=== PATIENT | male | born 1960 | race Caucasian/White ===

== ENCOUNTER 2017-04-12 09:33 | Outpatient (CLI) | payer OTHER | END 2017-04-12 09:34 | disposition short-term general hospital (02) | LOC: EMS 09:33 | PROVIDERS: ATTEND Surgery | DX: R12 Heartburn (principal); R07.89 Other chest pain | CPT/HCPCS: A0425; A0427 ==

== ENCOUNTER 2018-02-16 12:45 | Emergency (ER) | payer OTHER ==
[2018-02-16] MEDS ORDERED: PROPARACAINE 0.5% OPHTH DROPS 15 ML RIGHTEYE STA (13:04)
--- NOTE | 2018-02-16 13:41 | ED Physician Documentation ---
History of Present Illness - Stated complaint Stated Complaint: R EYE PX - Chief complaint Chief Complaint: Heent - Additonal information Additional information: hx from pt 57 male new to contacts and travelled for family emergency realizes he had two maybe three contacts in right eye for at least overnight and now has red inflamed r eye Review of Systems Eyes: reports: Irritation PD PAST MEDICAL HISTORY - Past Medical History Past Medical History: Yes Psych: Post traumatic stress disorder - Past Surgical History Past Surgical History: Yes - Present Medications Home Medications: Ambulatory Orders Medication Instructions Recorded Confirmed Diazepam [Valium] 10 mg PO DAILY PRN 07/25/14 11/04/14 Hydrocodone/Acetaminophen 1 - 2 each PO Q6H PRN #20 tablet 11/04/14 [Hydrocodon-Acetaminophen 5-325] Erythromycin Base [Erythromycin] 1 applic OP Q4H #1 tub 02/16/18 - Allergies Allergies/Adverse Reactions: Allergies Allergy/AdvReac Type Severity Reaction Status Date / Time No Known Drug Allergies Allergy Verified 11/04/14 13:07 - Social History Does the pt smoke?: Yes Smoking Status: Current every day smoker Does the pt drink ETOH?: Yes Does the pt have substance abuse?: No - Immunizations Immunizations are current?: Yes - POLST Patient has POLST: No PD ED PE NORMAL - Vitals Vital signs reviewed: Yes - HEENT HEENT: PERRL, EOMI, Other (injected candelario, dc, gobes soft, , no ulcer or abrasion or deindrites, thin curvilinear FB in R eye, thought it was edge of a contact lens but seems to be an eyelash which was removed) Results - Vitals Vitals: Vital Signs - 24 hr 02/16/18 12:58 Temperature 36.0 C L Heart Rate 65 Respiratory 18 Rate Blood Pressure 135/81 H O2 Saturation 99 Oxygen O2 Source Room air PD MEDICAL DECISION MAKING - ED course ED course: no corneal ulcer, no contact found, eyelash removed, eyes injected with dc and pt manipulation tryin to use his contacts, will rx emycin - Sepsis Event Vital Signs: Vital Signs - 24 hr 02/16/18 12:58 Temperature 36.0 C L Heart Rate 65 Respiratory 18 Rate Blood Pressure 135/81 H O2 Saturation 99 Oxygen O2 Source Room air Departure - Departure Disposition: 01 Home, Self Care Clinical Impression: Foreign body of right eye Qualifiers: Encounter type: initial encounter Qualified Code(s): T15.91XA - Foreign body on external eye, part unspecified, right eye, initial encounter Conjunctivitis Qualifiers: Conjunctivitis type: acute Acute conjunctivitis type: unspecified Laterality: bilateral Qualified Code(s): H10.33 - Unspecified acute conjunctivitis, bilateral Condition: Good Instructions: ED Conjunctivitis Nonspecific Prescriptions: Erythromycin Base [Erythromycin] 1 applic OP Q4H #1 tub Comments: Please follow up with your eye doctor next week for a recheck Return if worse
[2018-02-16] MEDS ORDERED: ERYTHROMYCIN OPHTH OINT 1 GM TUBE RIGHTEYE STA (14:13)
[2018-02-16 14:26] VITALS: BP 128/93
== END 2018-02-16 14:26 | disposition home or self-care (01) ==
LOC: ED 12:45
DX: T15.91XA Foreign body on external eye, part unspecified, right eye, initial encounter (principal); X58.XXXA Exposure to other specified factors, initial encounter; H10.33 Unspecified acute conjunctivitis, bilateral; F17.200 Nicotine dependence, unspecified, uncomplicated
CPT/HCPCS: 99283; J3490

== ENCOUNTER 2023-02-15 08:22 | Day surgery (SDC) | payer OTHER ==
[~2023-02-15 08:22] MED LIST: CYCLOPENTOLATE 1% OPHTH DROPS 2 ML ONE; KETOROLAC 0.45% OPHTH DROPS ONE; PHENYLEPHRINE 2.5% OPHTH 2 ML DROPS ONE; PROPARACAINE 0.5% OPHTH DROPS 15 ML ONE
[2023-02-15] MEDS ORDERED: LACTATED RINGERS 1,000 ML IV ONE ×2 (09:08→10:03)
[2023-02-15] MEDS ORDERED: BRIMONIDINE 0.2% OPHTH DROPS 5 ML ONE (09:23)
[2023-02-15] MEDS ORDERED: TRIAMCIN/MOXIFLOX OPHTHALMIC 0.6 ML VIAL IO ONE ×2 (09:23→09:32)
[2023-02-15] MEDS ORDERED: TIMOLOL 0.5% OPHTH DROPS ONE (09:23)
[2023-02-15] MEDS ORDERED: EPINEPHrine 1 MG/ML AMP ONE (09:23)
[2023-02-15] MEDS ORDERED: BSS/LIDOCAINE/EPINEPHRINE 1 ML VIAL ONE (09:24)
--- NOTE | 2023-02-15 09:30 | ANESTHESIA ---
Pre-Anesthesia VS, & Labs - Diagnosis right eye cataract - Procedure right eye cataract extraction with IOL implant Vital Signs: Temp Pulse Resp BP Pulse Ox O2 Flow Rate 36.6 C 91 17 131/85 H 95 02/15/23 08:45 02/15/23 08:45 02/15/23 08:45 02/15/23 08:45 02/15/23 08:45 Height: 5 ft 7 in Weight (kg): 65.9 kg Body Mass Index: 22.7 BMI Classification: Normal - NPO >8 hours Home Medications and Allergies Home Medications: Ambulatory Orders Mirtazapine 15 mg PO DAILY 02/14/23 Diazepam [Valium] 5 mg PO BID 07/25/14 Mirtazapine 15 mg PO DAILY 02/14/23 Allergies/Adverse Reactions: Allergies Allergy/AdvReac Type Severity Reaction Status Date / Time No Known Drug Allergies Allergy Verified 02/14/23 14:08 Anes History & Medical History - Anesthetic History Anesthesia Complications: reports: No previous complications - Medical History Cardiovascular: reports: None Pulmonary: reports: COPD Gastrointestinal: reports: None Urinary: reports: None Neuro: reports: None Musculoskeletal: reports: Chronic back pain Endocrine/Autoimmune: reports: None Skin: reports: Rosacea Smoking Status: Current every day smoker (1 pack per day for 20 years) Psychosocial: reports: Alcohol (4 drinks per day) History of Cancer?: No - Surgical History General: reports: Colonoscopy Eyes Ears Nose Throat (EENT): reports: Other (septoplasty) Orthopedic: reports: Other (ganglion cystectomy right wrist) Exam General: Alert, Oriented x3, Cooperative, No acute distress Dental: WNL Mouth Openin Fingerbreadth Neck Mobility: Reduced Mallampati classification: III Thyromental Distance: less than 4 cm Mental/Cognitive Status: Alert/Oriented X3, Normal for patient Plan Anesthesia Type: MAC Consent for Procedure(s) Verified and Reviewed: Yes Code Status: Attempt Resuscitation ASA classification: 2-Mild systemic disease Is this case an emergency?: No
[2023-02-15] MEDS ORDERED: BRIMONIDINE 0.2% OPHTH DROPS 5 ML OPTH ONE (09:31)
[2023-02-15] MEDS ORDERED: TIMOLOL 0.5% OPHTH DROPS OPTH ONE (09:31)
[2023-02-15] MEDS ORDERED: EPINEPHrine 1 MG/ML AMP IR ONE (09:31)
[2023-02-15] MEDS ORDERED: VANCOMYCIN OPHTH (TOPICAL) 10 MG/ML SYRINGE TOP ONE (09:32)
[2023-02-15] MEDS ORDERED: PROPARACAINE 0.5% OPHTH DROPS 15 ML EACHEYE ONE (09:32)
[2023-02-15] MEDS ORDERED: BSS/LIDOCAINE/EPINEPHRINE 1 ML SYRINGE IO ONE (09:32)
[2023-02-15] MEDS ORDERED: MIDAZOLAM 2 MG/2 ML VIAL ONE ×2 (09:33→09:56)
[2023-02-15] MEDS ORDERED: fentaNYL 100 MCG/2 ML VIAL ONE (09:53)
[2023-02-15 10:11] VITALS: O2SAT 97
--- NOTE | 2023-02-15 10:11 | OPERATIVE REPORT ---
Operative Report - Other Other Information/Narrative: Date of Surgery: 02/15/23 Preop Dx: Visually significant cataract right eye. This was the first cataract surgery. Postop Dx: Same Procedure: Phacoemulsification with posterior chamber intraocular lens implant right eye Surgeon: Dr. Ye Neville Anesthesia: Monitored anesthesia care Complications: None Operative Indications: This is a 62-year-old M with progressive vision loss in the right eye due to 3+ nuclear sclerotic, 2+ posterior subcapsular, and vacuolar cataract. Best corrected visual acuity was 20/40 with glare to hand motion vision in the right eye. Indications for surgery were: - Overall decrease in vision - Difficulty seeing words on a computer screen - Difficulty reading - Difficulty seeing words, closed captions, or game scores on TV - Difficulty seeing street signs - Difficulty driving in low light or at night - Difficulty driving at night because of headlights from other vehicles The patient was consented at length concerning the risks and benefits of cataract surgery after which the patient expressed a desire to proceed with surgery. Operative Procedure: The patient was taken into OR#3 and placed under monitored anesthesia care. A surgical time-out was conducted confirming correct patient, correct procedure, and correct surgical site. The patient was given topical anesthesia and then prepped and draped in the usual sterile fashion. The eye was entered at the 6 and 3 oclock positions. Intracameral Shugarcaine was injected into the anterior chamber followed by a dispersive viscoelastic. A continuous-tear curvilinear capsulorhexis was performed. The nucleus was hydrodissected and phacoemulsified. The cortex was evacuated using automated infusion and aspiration. A cohesive viscoelastic was injected into the capsular bag and a 23.0 diopter intraocular lens was inserted into the bag. Infusion and aspiration were used to evacuate the viscoelastic materials from the eye. The wounds were hydrated and the eye inflated to physiologic pressure using balanced salt solution. Approximately 0.25ml of a mixture of triamcinolone and moxifloxacin was injected trans-sclerally into the vitreous in the inferotemporal quadrant using a 30 gauge cannula. An additional 0.25ml of a mixture of triamcinolone and moxifloxacin was injected subconjunctivally in the superior quadrant for infection and inflammation prophylaxis. Wound integrity was checked with Weck-Radha sponges. The patient was taken from the operating room in good condition and given post-op instructions.
[2023-02-15 10:21] VITALS: BP 132/84
--- NOTE | 2023-02-15 10:52 | ANESTHESIA POST OP EVALUATION ---
Anesthesia Post Eval - Post Anesthesia Eval Vitals: Last Vital Signs Temp 36.4 C L 02/15/23 10:03 Pulse 87 02/15/23 10:16 Resp 15 02/15/23 10:16 BP 132/84 H 02/15/23 10:16 Pulse Ox 97 02/15/23 10:16 O2 Flow Rate CV Function Including HR & BP: Stable Pain Control: Satisfactory Nausea & Vomiting: Negative Mental Status: Baseline Respiratory Status: Airway Patent Hydration Status: Satisfactory Anesthesia Complications: None
== END 2023-02-15 08:23 | disposition home or self-care (01) ==
LOC: SDS 08:22
PROVIDERS: ATTEND Ophthalmology
DX: H25.811 Combined forms of age-related cataract, right eye (principal); J44.9 Chronic obstructive pulmonary disease, unspecified; F17.200 Nicotine dependence, unspecified, uncomplicated
CPT/HCPCS: 66984; A9270; J3490; J7120

== ENCOUNTER 2023-05-31 10:31 | Outpatient (CLI) | payer OTHER ==
[2023-05-31] MEDS ORDERED: ALBUTEROL 1 PUFF INH STA (12:13)
== END 2023-05-31 10:32 | disposition home or self-care (01) ==
LOC: RT 10:31
PROVIDERS: ATTEND Nurse Practitioner Family
DX: R05.3 Chronic cough (principal); R06.2 Wheezing; F17.200 Nicotine dependence, unspecified, uncomplicated
CPT/HCPCS: 94060; 94727; 94729

== ENCOUNTER 2023-07-15 12:42 | Emergency (ER) | payer OTHER ==
--- NOTE | 2023-07-15 14:05 | ED Physician Documentation ---
PD HPI FOCAL NEURO - Stated complaint Stated Complaint: NECK/CHEEK NUMBNESS - Chief complaint Chief Complaint: General - History obtained from History obtained from: Patient - History of Present Illness Timing - onset: How many weeks ago (2) Timing - duration: Weeks (2) Timing - details: Gradual onset, Still present, Intermittant, Waxing and waning (was initially intermittent feeling lasting few minutes or so, then has gotten more grequently, with an electric feeling on side of face, pront of ear and toward periorbital area on right. No rash nor sores. Has had symptoms more consistently though still undulating the past few days.) Severity of deficit: Moderate Weakness: No: Face Numbness: Face. No: Arm, Leg Associated symptoms: Headache (some pain, presure feeling right periauricular area and behind the ear.), Neck pain (right back of neck to side of neck.). No: Nausea / vomiting Baseline status: positive: A&OX3, ambulatory, indep Similar symptoms before: Has not had sx before Review of Systems Constitutional: denies: Fever, Chills, Myalgias Eyes: denies: Decreased vision, Photophobia Ears: reports: Tinnitus/ringing. denies: Loss of hearing, Ear pain, Drainage/discharge Nose: reports: Congestion. denies: Rhinorrhea / runny nose Neurologic: reports: Numbness (just right side of face on upper/mid aspect). denies: Focal weakness PD PAST MEDICAL HISTORY - Past Medical History Past Medical History: Yes Cardiovascular: None Respiratory: COPD Neuro: None Endocrine/Autoimmune: None GI: None : None HEENT: Other Psych: Post traumatic stress disorder Musculoskeletal: Chronic back pain Derm: Rosacea - Past Surgical History Past Surgical History: Yes General: Colonoscopy Ortho: Other HEENT: Other - Present Medications Home Medications: Ambulatory Orders Medication Instructions Recorded Confirmed Diazepam [Valium] 5 mg PO BID 07/25/14 02/14/23 Mirtazapine 15 mg PO DAILY 02/14/23 02/14/23 Valacyclovir HCl [Valtrex] 500 mg PO TID #15 tablet 07/15/23 carBAMazepine [TEGretol] 100 mg PO BID #20 tablet 07/15/23 dexAMETHasone [Decadron] 4 mg PO DAILY #5 tablet 07/15/23 - Allergies Allergies/Adverse Reactions: Allergies Allergy/AdvReac Type Severity Reaction Status Date / Time No Known Drug Allergies Allergy Verified 07/15/23 12:47 - Social History Does the pt smoke?: Yes Smoking Status: Current every day smoker Does the pt drink ETOH?: Yes Does the pt have substance abuse?: No - Immunizations Immunizations are current?: Yes - POLST Patient has POLST: No PD ED PE NORMAL - Vitals Vital signs reviewed: Yes - General General: Alert and oriented X 3, No acute distress, Well developed/nourished - HEENT HEENT: PERRL, EOMI, Ears normal, Pharynx benign, Dentition benign - Neck Neck: Supple, no meningeal sign, No adenopathy - Cardiac Cardiac: RRR, No murmur - Respiratory Respiratory: No respiratory distress, Clear bilaterally - Derm Derm: Normal color, Warm and dry, No rash - Neuro Neuro: Alert and oriented X 3, 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 ) Results - Vitals Vitals: Vital Signs - 24 hr 07/15/23 07/15/23 07/15/23 12:47 14:10 16:00 Temperature 36.8 C Heart Rate 96 79 66 Respiratory 18 18 18 Rate Blood Pressure 160/97 H 125/83 H 122/82 H O2 Saturation 99 96 95 07/15/23 07/15/23 18:16 18:58 Temperature 36.5 C Heart Rate 64 78 Respiratory 18 18 Rate Blood Pressure 146/84 H 147/90 H O2 Saturation 96 100 Oxygen O2 Source Room air - Labs Labs: Laboratory Tests 07/15/23 15:12 Sodium 134 L Potassium 4.2 Chloride 104 Carbon Dioxide 24 Anion Gap 6.0 BUN 12 Creatinine 0.8 Estimated GFR (MDRD) 97 Glucose 113 H Calcium 9.4 Magnesium 1.6 L Total Bilirubin 0.9 AST 47 H ALT 47 Alkaline Phosphatase 67 C-Reactive Protein < 0.5 Total Protein 6.8 Albumin 4.3 Globulin 2.5 Albumin/Globulin Ratio 1.7 Lipase 45 Vitamin B12 692 TSH 1.29 - Rads (name of study) head CT Relevant Findings:: Prelim report reviewed (no acute process), EMP independent interpretation of test head/neck angio Relevant Findings:: Prelim report reviewed (no acute stenoses.), EMP independent interpretation of test PD Medical Decision Making - ED course Complexity details: considered differential (trigeminal distribution of numbness without pain per se. It is uncomfortable for him. Consider trigeminal neuralgia at V1. Does not have rash but still consider shingles pain. No signs of ear infection, skin nor dental swelling.), d/w patient Departure - Departure Disposition: 01 Home, Self Care Clinical Impression: Right facial numbness Condition: Stable Record reviewed to determine appropriate education?: Yes Follow-Up: [facility] [place] [Provider Group] [facility] [Provider Group] Prescriptions: dexAMETHasone [Decadron] 4 mg PO DAILY #5 tablet carBAMazepine [TEGretol] 100 mg PO BID #20 tablet Valacyclovir HCl [Valtrex] 500 mg PO TID #15 tablet Comments: Your CT scan of the head did not show any obvious tumors masses or swelling. The angiogram portion showed appropriate blood flow to the areas without any signs of aneurysms or such. These tests are good at excluding a fair number of problems. Potentially still could be small lesions such as a mass plaques or such. Follow-up with your primary care if this is not resolved well over the next several days to week. Potential consideration would be outpatient MRI. Meanwhile it sounds more likely to be peripheral nerve rather than in the brain. This would be an irritation or inflammation of the trigeminal nerve the branch going to that area of the face. This can occur from basic immune inflammation or at times can be a viral type infection. I would treat it with a combination of valacyclovir antiviral for 5 days as well as dexamethasone steroid for 5 days. This would cover a couple of the possibilities. Otherwise a irritation of the trigeminal nerve can occur and last a bit longer. It is commonly treated with a seizure medicine as the seizure medicines also help with nerve irritation for peripheral nerves II. Common would be Tegretol/carbamazepine and starting at a lower dose of 100 mg twice daily. At this point I would suggest the 3 medications above and following up with your primary care and see how much you are improved and deciding which to continue if not all resolved. I sent your prescriptions to your preferred pharmacy. Forms: PCP List Discharge Date/Time: 07/15/23 18:59
[2023-07-15 15:49] LABS: THYROID STIMULATING HORMONE 1.29 uIU/mL (0.34-5.60)
[2023-07-15 15:52] LABS: ALBUMIN 4.3 g/dL (3.2-5.5); ALBUMIN/GLOBULIN RATIO 1.7 (1.0-2.2); ALKALINE PHOSPHATASE 67 IU/L (42-121); ALT ALANINE AMINOTRANSFERASE 47 IU/L (10-60); AST ASPARTATE AMINOTRANSFERASE 47 IU/L (10-42); BILIRUBIN,TOTAL 0.9 mg/dL (0.2-1.0); BUN - BLOOD UREA NITROGEN 12 mg/dL (6-20); CALCIUM 9.4 mg/dL (8.5-10.3); CARBON DIOXIDE - CO2 24 mmol/L (21-32); CHLORIDE 104 mmol/L (101-111); CREATININE 0.8 mg/dL (0.6-1.3); CRP - C-REACTIVE PROTEIN < 0.5 mg/dL (<0.5); GFR - MDRD 97 (>89); GLUCOSE 113 mg/dL (74-104); LIPASE 45 U/L (11-82); MAGNESIUM 1.6 mg/dL (1.7-2.3); POTASSIUM 4.2 mmol/L (3.5-4.5); SODIUM 134 mmol/L (135-145); TOTAL PROTEIN 6.8 g/dL (6.4-8.9)
[2023-07-15] MEDS ORDERED: iohexoL-300 100 ML VIAL ONE (16:02)
[2023-07-15] MEDS: iohexoL-300 100 ML VIAL IVP ONE (16:27)
--- NOTE | 2023-07-15 17:10 | CT Report ---
PROCEDURE: Head WO INDICATIONS: right facial numbness 3 days TECHNIQUE: Noncontrast 4.5 mm thick angled axial sections acquired from the foramen magnum to the vertex. For r adiation dose reduction, the following was used: automated exposure control, adjustment of mA and/or kV according to patient size. COMPARISON: None. FINDINGS: Image quality: Excellent. CSF spaces: Basal cisterns are patent. No extra-axial fluid collections. Ventricles are normal in size and shape. Brain: No midline shift. No intracranial masses or hemorrhage. Butt-white matter interface is norm al. Skull and face: Calvarium and visualized facial bones are intact, without suspicious lesions. Sinuses: Visualized sinuses and mastoids are clear. IMPRESSION: No acute intracranial pathology. Reviewed by: Avelina Tsai MD on 07/15/2023 5:09 PM [facility] Approved by: Avelina Tsai MD on 07/15/2023 5:09 PM [facility] Station ID: [id number]
[2023-07-15] MEDS: valACYclovir 500 MG TABLET PO STA (18:30)
[2023-07-15] MEDS: dexAMETHasone 4 MG TABLET PO STA (18:30)
[2023-07-15] MEDS: KETOROLAC 15 MG/ML VIAL IVP STA (18:41)
[2023-07-15] MEDS: carBAMazepine 200 MG TABLET PO STA (18:41)
--- NOTE | 2023-07-15 18:48 | CT Report ---
PROCEDURE: Angio Head/Neck INDICATIONS: right facial numbness TECHNIQUE: After the administration of intravenous contrast, 1 mm thick sections acquired from the aortic arch t hrough the [place]. 3-dimensional hmhwcew-raidijeit-dtpyqovnxk (MIP) and/or volume renderin g reformats were acquired of the central intracranial vasculature and neck separately. For radiation dose reduction, the following was used: automated exposure control, adjustment of mA and/or kV acco rding to patient size. CONTRAST: 80 cc Omnipaque 300 COMPARISON: None. FINDINGS: Image quality: Diagnostic. HEAD CT: CSF Spaces: Basal cisterns are patent. No extra-axial fluid collections. Ventricles are normal in size and shape. Brain: The brain is within normal limits for age and scanning technique. Skull and face: Calvarium and visualized facial bones appear intact, without suspicious lesions. Sinuses: Visualized sinuses and mastoids are clear. HEAD CT ANGIOGRAPHY: Anterior circulation: Intracranial internal carotid arteries are normal in size and flow. The flow within the paired anterior cerebral arteries is normal and symmetric. The flow within the middle cer ebral arteries is normal and symmetric. The anterior communicating artery is seen. No aneurysms are seen. Posterior circulation: Visualized portions of the vertebral arteries demonstrate normal caliber, and join to form a normal appearing basilar artery. Flow within the posterior cerebral arteries is norm al and symmetric. No aneurysms are seen. NECK CT ANGIOGRAPHY: Carotid system: The great vessels demonstrate a conventional anatomy as they arise from the aortic a rch. The origins of the common carotid arteries appear patent. The common carotid arteries demonstr ate normal caliber and courses. The bifurcation regions are both widely patent. The internal caroti d arteries demonstrate normal calibers and courses. Posterior circulation: The origins of the vertebral arteries both appear widely patent. The more hart perior extracranial portions of both vertebral arteries also demonstrate normal courses and calibers. They join to form a normal appearing basilar artery. Soft tissues: Visualized neck soft tissues demonstrate no suspicious abnormalities. Bones: No suspicious bony lesions. Mild cervical kyphosis. Mild degenerative changes. Visualized ce rvical spine appears normally aligned. Mild maxillary sinus disease. Right frontal sinus is hypoplas tic and there is a chronic right nasal bone fracture. Hypoplastic. IMPRESSION: No significant intracranial arterial abnormality is seen. No significant abnormality is seen within the arteries of the neck. The estimate of stenosis included in the report of the imaging study was calculated using the NASCET method Reviewed by: Avelina Tsai MD on 07/15/2023 6:47 PM PST Approved by: Avelina Tsai MD on 07/15/2023 6:47 PM PST Station ID: [id number]
[2023-07-15 19:00] VITALS: BP 147/90; O2SAT 100
== END 2023-07-15 18:59 | disposition home or self-care (01) ==
LOC: ED 12:42
DX: R20.0 Anesthesia of skin (principal); J44.9 Chronic obstructive pulmonary disease, unspecified; F17.200 Nicotine dependence, unspecified, uncomplicated; Z79.899 Other long term (current) drug therapy
CPT/HCPCS: 36415; 70450; 70496; 70498; 80053; 82607; 83690; 83735; 84425; 84443; 86140; 96374; 99284; A9270; J8540; Q9967

== ENCOUNTER 2023-09-23 23:28 | Emergency (ER) | payer OTHER ==
[2023-09-24] MEDS: SOAP SUDS ENEMA 1 EACH RC ONE (00:14)
--- NOTE | 2023-09-24 01:35 | ED Physician Documentation ---
History of Present Illness - Stated complaint Stated Complaint: GI - Chief complaint Chief Complaint: Abd Pain - History obtained from History obtained from: Patient - Additonal information Additional information: Patient is a 62-year-old male presenting for evaluation of constipation. Patient states he has been having issues with constipation for the last 4 days. He has been taking Dulcolax and this evening tried a fleets enema at home without any improvement As well as a glycerin suppository. He reports discomfort in the rectum as if he wants to have a bowel movement. He denies prior history of abdominal surgeries. No nausea or vomiting. Denies abdominal pain. Has had prior issues with constipation but it has been a long time. Review of Systems Constitutional: denies: Fever Cardiac: denies: Chest pain / pressure Respiratory: denies: Dyspnea GI: reports: Constipation. denies: Abdominal Pain PD PAST MEDICAL HISTORY - Past Medical History Past Medical History: Yes Cardiovascular: None Respiratory: COPD Neuro: None Endocrine/Autoimmune: None GI: None : None HEENT: Other Psych: Post traumatic stress disorder Musculoskeletal: Chronic back pain Derm: Rosacea - Past Surgical History Past Surgical History: Yes General: Colonoscopy Ortho: Other HEENT: Other - Present Medications Home Medications: Ambulatory Orders Medication Instructions Recorded Confirmed Mirtazapine 15 mg PO DAILY 02/14/23 09/24/23 Ibuprofen [Motrin] 400 - 800 mg PO Q6HR PRN 09/24/23 09/24/23 carBAMazepine [TEGretol] 200 mg PO BID 09/24/23 09/24/23 diazePAM [Valium] 5 mg PO BID PRN 09/24/23 09/24/23 - Allergies Allergies/Adverse Reactions: Allergies Allergy/AdvReac Type Severity Reaction Status Date / Time No Known Drug Allergies Allergy Verified 09/23/23 23:45 - Social History Does the pt smoke?: Yes Smoking Status: Current every day smoker Does the pt drink ETOH?: Yes Does the pt have substance abuse?: No - Immunizations Immunizations are current?: Yes - POLST Patient has POLST: No PD ED PE NORMAL - General General: Alert and oriented X 3, No acute distress, Well developed/nourished - HEENT HEENT: Atraumatic - Neck Neck: Supple, no meningeal sign - Cardiac Cardiac: RRR, Strong equal pulses - Respiratory Respiratory: No respiratory distress, Clear bilaterally - Abdomen Abdomen: Normal bowel sounds, Soft, Non tender, Non distended - Rectal Rectal: Other (Chaperoned by Taurus, soft stool felt in rectum, no blood on glove) - Derm Derm: Warm and dry - Neuro Neuro: Normal speech Results - Vitals Vitals: Vital Signs - 24 hr 09/23/23 09/24/23 23:45 01:45 Temperature 36.8 C Heart Rate 60 96 Respiratory 16 20 Rate Blood Pressure 145/95 H 133/88 H O2 Saturation 98 97 Oxygen O2 Source Room air PD Medical Decision Making - ED course ED course: Patient is a 62-year-old male presenting for evaluation of constipation. Abdominal exam is benign. Patient had already tried a fleets enema and glycerin suppository at home. Soapsuds enema was ordered here but per RN patient started having stool output immediately with enema administration here. He also had reported feeling like he was having trouble urinating and we were going to do a bladder scan but then patient was able to urinate and felt much better and postvoid bladder scan was only 41 mL. At this time patient is feeling much better and would like to go home. He is counseled on continued options for treatment of constipation as well as need for close follow-up with his primary care doctor. Patient is also advised on strict return precautions for any worsening symptoms. Departure - Departure Disposition: 01 Home, Self Care Clinical Impression: Constipation Condition: Stable Instructions: ED Constipation Comments: Your symptoms have improved in the emergency department tonight which is a good sign.You can use [id number] medications in the future such as MiraLAX to help with constipation and to help keep your stools soft. Please follow-up with your primary care doctor. Return to the ER with any worsening symptoms. Forms: PCP List Discharge Date/Time: 09/24/23 01:45
[2023-09-24 01:52] VITALS: BP 133/88; O2SAT 97
== END 2023-09-24 01:45 | disposition home or self-care (01) ==
LOC: ED 23:28
DX: K59.00 Constipation, unspecified (principal); R39.198 Other difficulties with micturition; F17.200 Nicotine dependence, unspecified, uncomplicated
CPT/HCPCS: 51798; 99282; 99283; A9270

== ENCOUNTER 2024-01-17 07:49 | Day surgery (SDC) | payer MEDICARE, OTHER ==
[~2024-01-17 07:49] MED LIST changes: -KETOROLAC 0.45% OPHTH DROPS ONE; +KETOROLAC TROMETHAMINE 0.5% OPHTH DROPS 5 ML ONE
[2024-01-17] MEDS: LACTATED RINGERS 1,000 ML IV ONE ×2 (08:00→10:25)
[2024-01-17] MEDS: CYCLOPENTOLATE 1% OPHTH DROPS 2 ML ONE (08:13)
[2024-01-17] MEDS: PROPARACAINE 0.5% OPHTH DROPS 15 ML ONE (08:13)
[2024-01-17] MEDS: PHENYLEPHRINE 2.5% OPHTH 2 ML DROPS ONE (08:13)
[2024-01-17] MEDS: KETOROLAC TROMETHAMINE 0.5% OPHTH DROPS 5 ML ONE (08:13)
[2024-01-17] MEDS ORDERED: fentaNYL 100 MCG/2 ML VIAL ONE (09:08)
[2024-01-17] MEDS ORDERED: MIDAZOLAM 2 MG/2 ML VIAL ONE ×2 (09:08→09:18)
[2024-01-17] MEDS ORDERED: BSS/LIDOCAINE/EPINEPHRINE 1 ML VIAL ONE (09:31)
[2024-01-17] MEDS ORDERED: EPINEPHrine 1 MG/ML AMP ONE (09:31)
[2024-01-17] MEDS ORDERED: TRIAMCIN/MOXIFLOX OPHTHALMIC 0.6 ML VIAL IO ONE (09:31)
[2024-01-17] MEDS: TIMOLOL 0.5% OPHTH DROPS OPTH ONE (09:36)
[2024-01-17] MEDS: BSS/LIDOCAINE/EPINEPHRINE 1 ML SYRINGE IO ONE (09:36)
[2024-01-17] MEDS: EPINEPHrine 1 MG/ML AMP IR ONE (09:36)
[2024-01-17] MEDS: BRIMONIDINE 0.2% OPHTH DROPS 5 ML OPTH ONE (09:36)
[2024-01-17] MEDS: TRIAMCIN/MOXIFLOX OPHTHALMIC 0.6 ML VIAL IO ONE (09:37)
[2024-01-17] MEDS: VANCOMYCIN OPHTH (TOPICAL) 10 MG/ML SYRINGE TOP ONE (09:37)
[2024-01-17] MEDS: PROPARACAINE 0.5% OPHTH DROPS 15 ML EACHEYE ONE (09:37)
--- NOTE | 2024-01-17 09:38 | ANESTHESIA ---
Pre-Anesthesia VS, & Labs - Diagnosis L cataract - Procedure L phacoIOL Vital Signs: Temp Pulse Resp BP Pulse Ox O2 Flow Rate 36.3 C L 76 18 135/95 H 98 01/17/24 08:00 01/17/24 08:00 01/17/24 08:00 01/17/24 08:00 01/17/24 08:00 Height: 5 ft 8 in Weight (kg): 64.2 kg Body Mass Index: 21.5 BMI Classification: Normal - NPO >8 hours Home Medications and Allergies Mirtazapine 15 mg PO DAILY 02/14/23 Ibuprofen [Motrin] 400 - 800 mg PO Q6HR PRN 09/24/23 carBAMazepine [TEGretol] 200 mg PO BID 09/24/23 diazePAM [Valium] 5 mg PO BID PRN 09/24/23 Allergies/Adverse Reactions: Allergies Allergy/AdvReac Type Severity Reaction Status Date / Time No Known Drug Allergies Allergy Verified 09/23/23 23:45 Anes History & Medical History - Anesthetic History Anesthesia Complications: reports: No previous complications Family history of Anesthesia Complications: Denies Family history of Malignant Hyperthermia: Denies - Medical History Cardiovascular: reports: None Pulmonary: reports: COPD, Other (pt reports hoarseness for last several months, pending procedure toevalute with MD next week) Gastrointestinal: reports: None Urinary: reports: None Neuro: reports: None Musculoskeletal: reports: Chronic back pain Endocrine/Autoimmune: reports: None Skin: reports: Rosacea Smoking Status: Heavy tobacco smoker Psychosocial: reports: Substance abuse, Alcohol (Heavy ETOH use) History of Cancer?: No - Surgical History General: reports: Colonoscopy Eyes Ears Nose Throat (EENT): reports: Cataracts, Other Orthopedic: reports: Other Exam General: Alert, Oriented x3, Cooperative Respiratory: Decreased breath sounds Plan Anesthesia Type: MAC Consent for Procedure(s) Verified and Reviewed: Yes Code Status: Attempt Resuscitation ASA classification: 3-Severe systemic disease Is this case an emergency?: No
--- NOTE | 2024-01-17 10:22 | OPERATIVE REPORT ---
Operative Report - Other Other Information/Narrative: Date of Surgery: 01/17/24 Preop Dx: Visually significant cataract left eye. Cataract surgery was performed in the right eye on . Postop Dx: Same Procedure: Phacoemulsification with posterior chamber intraocular lens implant left eye Surgeon: Dr. Ye Neville Anesthesia: Monitored anesthesia care Complications: None Operative Indications: This is a 63-year-old M with progressive vision loss in the left eye due to 3+ nuclear sclerotic cataract. Best corrected visual acuity was 20/25 with glare to 20/500 vision in the left eye. Indications for surgery were: - Overall decrease in vision - Difficulty seeing words on a computer screen - Difficulty reading - Difficulty seeing words, closed captions, or game scores on TV - Difficulty seeing street signs - Difficulty driving in low light or at night The patient was consented at length concerning the risks and benefits of cataract surgery after which the patient expressed a desire to proceed with surgery. Operative Procedure: The patient was taken into OR#3 and placed under monitored anesthesia care. A surgical time-out was conducted confirming correct patient, correct procedure, and correct surgical site. The patient was given topical anesthesia and then prepped and draped in the usual sterile fashion. The eye was entered at the 6 and 3 oclock positions. Intracameral Shugarcaine was injected into the anterior chamber followed by a dispersive viscoelastic. A continuous-tear curvilinear capsulorhexis was performed. The nucleus was hydr odissected and phacoemulsified. The cortex was evacuated using automated infusion and aspiration. A cohesive viscoelastic was injected into the capsular bag and a 23.0 diopter intraocular lens was inserted into the bag. Infusion and aspiration were used to evacuate the viscoelastic materials from the eye. The wounds were hydrated and the eye inflated to physiologic pressure using balanced salt solution. Approximately 0.25ml of a mixture of triamcinolone and moxifloxacin was injected trans-sclerally into the vitreous in the inferotemporal quadrant using a 30 gauge cannula. An additional 0.25ml of a mixture of triamcinolone and moxifloxacin was injected subconjunctivally in the superior quadrant for infection and inflammation prophylaxis. Wound integrity was checked with Weck-Radha sponges. The patient was taken from the operating room in good condition and given post-op instructions.
--- NOTE | 2024-01-17 10:34 | ANESTHESIA POST OP EVALUATION ---
Anesthesia Post Eval - Post Anesthesia Eval Vitals: Last Vital Signs Temp 36.2 C L 01/17/24 10:09 Pulse 62 01/17/24 10:24 Resp 16 01/17/24 10:24 BP 131/83 H 01/17/24 10:24 Pulse Ox 96 01/17/24 10:24 O2 Flow Rate CV Function Including HR & BP: Stable Pain Control: Satisfactory Nausea & Vomiting: Negative Mental Status: Baseline Respiratory Status: Airway Patent Hydration Status: Satisfactory Anesthesia Complications: None
[2024-01-17 10:35] VITALS: BP 131/83; O2SAT 96
== END 2024-01-17 07:50 | disposition home or self-care (01) ==
LOC: SDS 07:49
PROVIDERS: ATTEND Ophthalmology
DX: H25.812 Combined forms of age-related cataract, left eye (principal); J44.9 Chronic obstructive pulmonary disease, unspecified; F17.200 Nicotine dependence, unspecified, uncomplicated
CPT/HCPCS: 66984; A9270; J3490; J7120

== ENCOUNTER 2024-02-11 09:34 | Outpatient (CLI) | payer MEDICARE, OTHER ==
--- NOTE | 2024-02-11 15:29 | Ultrasound Report ---
PROCEDURE: Aorta Screening INDICATIONS: SCREENING FOR CARDIOVASCUALR DISEASE TECHNIQUE: Real time scanning was performed of the aorta and iliac arteries, with image documentatio n. COMPARISON: None. FINDINGS: Aorta: Proximal aortic diameter measures 2.5 x 2.3 cm. Mid-aorta measures 1.9 x 1.9 cm. Distal aor tic diameter is 1.7 x 1.6 cm. Iliac arteries: Right common iliac artery measures 1.2 x 1.2 cm. Left common iliac artery measures 1.1 x 1.2 cm. IMPRESSION: No infrarenal aortic aneurysm. Recommended intervals for follow-up imaging of ectatic aortas and abdominal aortic aneurysms, per ACR consensus guidelines: 2.5-2.9 cm: 5 years 3.0-3.4 cm: 3 years 3.5-3.9 cm: 2 years 4.0-4.4 cm: 1 year 4.5-4.9 cm: 6 months + endovascular referral 5.0-5.5 cm: 3-6 months + endovascular referral Reviewed by: Rinku Degroot MD on 02/11/2024 3:28 PM PDT Approved by: Rinku Degroot MD on 02/11/2024 3:28 PM PDT Station ID: [id number]
== END 2024-02-11 09:35 | disposition home or self-care (01) ==
LOC: DI 09:34
PROVIDERS: ATTEND Student in an Organized Health Care Education/Training Program
DX: Z13.6 Encounter for screening for cardiovascular disorders (principal); Z12.2 Encounter for screening for malignant neoplasm of respiratory organs; F17.210 Nicotine dependence, cigarettes, uncomplicated

== ENCOUNTER 2024-02-11 09:56 | Outpatient (CLI) | payer MEDICARE, OTHER ==
--- NOTE | 2024-02-11 11:47 | CT Report ---
PROCEDURE: Lung Cancer Screen INDICATIONS: SMOKER TECHNIQUE: A CT scan of the chest was performed. Intravenous contrast media was not administered. Images were re corded and evaluated at appropriate window settings. Reformats: axial MIP of the chest, coronal and s agittal. For radiation dose reduction, the following was used: automated exposure control, adjustment of mA and/or kV according to patient size. COMPARISON: None. FINDINGS: Image quality: Excellent. Prior cancer history: Unsure. Lungs and pleura: No pleural effusions. No pneumothorax. A few peribronchial nodules within the righ t upper lobe subsegmental airways. Mediastinum: Heart size is normal. No pericardial effusion. No large vessel abnormality. No mediastin al adenopathy by size criteria. Two vessel coronary artery calcifications. Chest wall and lower neck: Thyroid is unremarkable. No axillary or supraclavicular adenopathy by size . Bones: No aggressive osseous abnormality. Upper Abdomen: Unremarkable. IMPRESSION: Lung RAD: 2 - Benign. Recommendation: Continue annual screening in 12 Months with LDCT Non-Lung Significant Findings: None. Reviewed by: Rinku Degroot MD on 02/11/2024 11:46 AM PDT Approved by: Rinku Degroot MD on 02/11/2024 11:46 AM PDT Station ID: [id number]
== END 2024-02-11 09:57 | disposition home or self-care (01) ==
LOC: DI 09:56
PROVIDERS: ATTEND Student in an Organized Health Care Education/Training Program
DX: Z12.2 Encounter for screening for malignant neoplasm of respiratory organs (principal); F17.210 Nicotine dependence, cigarettes, uncomplicated